=== PATIENT | female | born 1975 ===

== ENCOUNTER 2017-01-17 23:08 | Observation (INO) ==
[2017-01-17] MEDS ORDERED: cefOXitin 1,000 MG in SODIUM CHLORIDE 0.9% 100 ML IV STA (23:43)
--- NOTE | 2017-01-17 23:47 | Emergency Department Note ---
Arrival - Arrival Chief Complaint: Post Surgical Stated Complaint: open hernia repair wound ED Nursing Triage Note: Patient to ED via EMS [facility] after rolling out of her bunkbed at the snf center, resulting in her wound from a hernia repair 1 month ago to open. open area is approx 2 cm and bleeding is controlled. Patient does not remember date or surgery or whom performed surgery. Patient is currently incarcerated for possession of narcotics. Mode of Arrival: Stretcher Limitations: No Limitations Source: Patient Time Seen by Provider: 01/17/17 23:42 - History of Present Illness HPI Narrative: This 41-year-old inmate presents on transfer from [facility] after falling out of her bunk in the snf center at [place]. In the fall she hit her surgical scar from a recent ventral hernia repair with subsequent dehiscence. The patient was sent here for further evaluation and treatment given on her CT she did have a pelvic wall hematoma as well as questionable bowel or bladder fistula based on gas patterns. Currently the patient is resting comfortably in bed without any major complaints with stable vital signs. Onset (ago): hour(s) (Patient presents 4 hours after onset of symptoms) Date of Last Menstrual Period: 1 week ago Allergies/Adverse Reactions: Allergies Allergy/AdvReac Type Severity Reaction Status Date / Time ibuprofen [From Motrin] Allergy HIVES Verified 01/17/17 23:17 Home Medications: Home Medications Medication Instructions Recorded Confirmed Type Pantoprazole Tab [Protonix Tab] 20 mg PO DAILY #30 tablet 01/19/16 Rx traMADol TAB [Ultram] 50 mg PO Q6H #16 tablet 01/19/16 Rx Review of System - Review of System 12 point system: reviewed and no additional remarkable complaints except as stated - Review of System Constitutional: Present: as per HPI Gastrointestinal: Present: as per HPI Medical,Surgical,& Family Hx - Medical History Cardio: No history of: Hypertension Endocrine: No history of: Diabetes Mellitus (IDDM), Diabetes Mellitus (NIDDM) Gastrointestinal: History of: GI Problems (herina ) Musculoskeletal: History of: Back/Neck Problems (back arthritis according to patient ) - Surgical History Abdominal Surgeries: Surgical HX of: Hernia Repair - Social History Smoking Status: Never smoker Frequency of Alcohol Use: None Type of Drug Use: None Exam Physical Examination: GENERAL: Well developed, well nourished [place] female in no acute distress. HEENT: Normocephalic. No trauma. Moist mucous membranes. EOMI. PERRLA. ENT NML NECK: Supple. No adenopathy. CARDIAC: Regular. No murmurs. Heart rate 81 CHEST: Clear to auscultation. No respiratory distress. O2 sat 90 ABDOMEN: Soft. Tender around the area of dehiscence of approximately 4 cm with no active bleeding. Hypoactive bowel sounds. EXTREMITIES: No trauma. Normal ROM. No pedal edema. SKIN: No diaphoresis. No rash. Dehiscence as above NEURO: Alert. Neuro intact no focal deficits. Vital Signs: Vital Signs Temperature 97.9 F 01/17/17 23:08 Pulse Rate 81 01/17/17 23:08 Respiratory Rate 18 01/17/17 23:08 Blood Pressure 121/82 01/17/17 23:08 O2 Sat by Pulse Oximetry 99 01/17/17 23:08 Course - Reevaluation(s) Reevaluation #1: Advised patient of need for hospitalization - Consultations Consultation #1: Discussed with Dr. Carr who deferred to Dr. Laura MALDONADO as this is his patient. Consultation #2: Discussed with Dr. Sanchez who advised cystogram prior to admission. Results - Labs CBC & BMP: 01/17/17 00:08 01/17/17 00:08 Labs: Lab per Maulik: White blood cell count 3900, hematocrit 32.8, creatinine 0.6, BUN 16, sodium 144, potassium 3.7, amylase 61, lipase 159 Follow-up labs here revealed a hematocrit of 29 with amylase and lipase unchanged. - Diagnostic Findings Procedure: CT Abdomen and Pelvis: image reviewed by me, report reviewed by me ( Per Maulik: Ventral pelvic wall subcutaneous gas and strandy subcutaneous density suggesting a mild hemorrhage as well as possibly subcutaneous gas suspicious for laceration and cellulitis. Gas within the urinary bladder noted suspicious for bowel or vagina to bladder fistula), X-ray: image reviewed by me , report reviewed by me (Preliminary cystogram appears negative) Disposition Clinical Impression: Wound dehiscence Case discussed with: patient Disposition: Still a Patient Condition: Guarded Time of Disposition: 01:34
[2017-01-18 00:47] LABS: Basophils % 0.2 % (0.0-0.8); Eosinophils % 0.5 % (0.00-10.9); Hematocrit 29.6 VOL% (35.7-47.0); Hemoglobin 10.1 GM/DL (12.0-16.0); Immature Granulocytes % 0.3 %; Immature Granulocytes Absolute 0.02 #; Lymphocytes % 33.6 % (21.3-54.2); Mean Corpuscular HGB Conc 34.1 GM/DL (32-36); Mean Corpuscular Hemoglobin 30 PG (27-34); Mean Corpuscular Volume 88.1 FL (87-102); Mean Platelet Volume 9.7 FL (9.6-12.0); Monocytes # 0.4 10*3/uL (0.11-0.8); Neutrophils # 3.5 10*3/uL (1.4-7.4); Neutrophils % 58.4 % (38.7-73.9); Platelet Count 230 T/CUMM (130-400); Red Blood Count 3.36 MC/CUMM (3.8-5.5); Red Cell Distribution Width 13.4 % (9.3-17.3)
[2017-01-18] MEDS ORDERED: SODIUM CHLORIDE 0.9% 1,000 ML IV STA (00:47)
[2017-01-18 01:01] LABS: Calcium 8.2 MG/DL (8.5-10.1); Potassium 3.4 MMOL/L (3.5-5.1)
[2017-01-18 01:04] LABS: Lactic Acid 0.8 MMOL/L (0.4-2.0)
--- NOTE | 2017-01-18 01:26 | General Surg History&Physical ---
Assessment and Plan - Time spent with patient Time spent with patient: Greater than 30 minutes (1) Fall Status: Acute Assessment and plan: She may have a trauma to her previous surgical site with partial dehiscence or this could be postoperative change. Using sterile technique we reclosed the abdominal wound with local anesthesia and skin clips. We will obtain a cystogram. When the Anne catheter was placed she had clear yellow urine. We will observe and get serial hematocrits. Current Visit: Yes History of Present Illness Chief complaint: Fall from bunk bed History of present illness: Ms. Macias is a 41 year old female Who is in the custodial facility at [facility] when she fell off of the top bunk. She had pain in her abdomen and drainage from her recent hernia repair site. The lower midline scar that she had before it partially opened up. She states that she had hernia repair with mesh done by me about a month ago at the surgery center. I do not have records of this. It seems like it was longer ago than a month. She had a CT scan read by virtual radiology there that showed some air in the bladder and that she had not had a catheterization. She has had some serosanguineous drainage from the lower aspect of her old incision which partially opened up. She has not had diffuse abdominal pain or unstable vital signs. She is not having nausea or vomiting or hematuria. Home Medications Medication Instructions Recorded Confirmed Type Pantoprazole Tab [Protonix Tab] 20 mg PO DAILY #30 tablet 01/19/16 Rx traMADol TAB [Ultram] 50 mg PO Q6H #16 tablet 01/19/16 Rx Allergies Allergy/AdvReac Type Severity Reaction Status Date / Time ibuprofen [From Motrin] Allergy HIVES Verified 01/17/17 23:17 Medical,Surgical,& Family Hx - Medical History Cardio: No history of: Hypertension Endocrine: No history of: Diabetes Mellitus (IDDM), Diabetes Mellitus (NIDDM) Gastrointestinal: History of: GI Problems (herina ) Musculoskeletal: History of: Back/Neck Problems (back arthritis according to patient ) - Surgical History Abdominal Surgeries: Surgical HX of: Hernia Repair - Social History Smoking Status: Never smoker Frequency of Alcohol Use: None Type of Drug Use: None Exam - Constitutional Vitals: Period Temp Pulse Resp BP Sys/Landers Pulse Ox Last 24 Hr 97.9 F-97.9 F 81-81 18-18 121-121/82-82 99 General appearance: no acute distress - Head Head exam: Present: normocephalic - Eye Eye exam: Present: EOMI. Absent: scleral icterus - ENT Mouth exam: Present: normal voice - Neck Neck exam: Present: trachea midline - Respiratory Respiratory exam: Present: clear to auscultation bilaterally. Absent: accessory muscle use - Cardiovascular Cardiovascular exam: Present: RRR - GI/Abdominal GI/Abdominal exam: Present: soft, other (The old scar in her lower midline at the lower aspect is opened 1.5 cm without exposed intra-abdominal contents or mesh. There is some exposed subcutaneous tissue). Absent: distended, guarding , tenderness, rebound - Extremities Exam Extremities exam: Absent: edema - Neurological Exam Neurological exam: Present: alert, oriented X3. Absent: motor sensory deficit Speech: Present: normal - Skin Skin exam: Present: normal color - Constitutional Constitutional: Absent: chills, fever(s) - Cardiovascular Cardiovascular: Absent: chest pain at rest, chest pain with activity, dyspnea, dyspnea on exertion - Respiratory Respiratory: Absent: dyspnea, hemoptysis, dyspnea on exertion - Gastrointestinal Gastrointestinal: Present: abdominal pain. Absent: hematemesis, hematochezia, nausea, vomiting - Genitourinary Genitourinary: Absent: hematuria - Musculoskeletal Musculoskeletal: Absent: back pain - Neurological Neurological: Absent: focal weakness, syncope - Endocrine Endocrine: Absent: polyuria Hematologic/Lymphatic: Absent: easy bleeding, easy bruising Results - Labs CBC & BMP: 01/17/17 00:08 01/17/17 00:08 Lab Results: I have reviewed the past 24 hour labs - Diagnostic Findings Procedure: CT Abdomen and Pelvis: report reviewed by me
[2017-01-18] MEDS ORDERED: ONDANSETRON 4 MG/2 ML VIAL IV PRN (01:29)
[2017-01-18] MEDS ORDERED: ACETAMINOPHEN 325 MG TABLET PO PRN (01:29)
[2017-01-18] MEDS: DEXTROSE 5% NACL 0.45% 1,000 ML IV SCH ×3 (04:49→18:36)
[2017-01-18] MEDS: VANCOMYCIN INJ 1,000 MG in SODIUM CHLORIDE 0.9% 250 ML IV SCH ×2 (04:51→18:35)
[2017-01-18] MEDS: MORPHINE 2 MG/1 ML SYRINGE IV PRN ×2 (06:07→22:33)
--- NOTE | 2017-01-18 06:43 | Fluoroscopy Report ---
Cystogram. Indication: Pain after surgery. 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 Previous hernia repair. There is a preliminary report from [facility]. 9 images were obtained. This study was performed under the direction of the primary service, in the emergency room, without fluoroscopy. A digester operator helper radiograph demonstrates mild gaseous distention of bowel. Surgical skin smith are seen over the lower abdomen, and there are splenic granulomas present. 500 cc of Cysto-Conray was injected into the bladder via a Anne catheter. The bladder contour is normal. No fistula formation is seen. No vesicoureteral reflux was identified. Impression: No abnormality of the urinary bladder is seen. PROCEDURE INTERPRETED AT [facility] DEPARTMENT OF RADIOLOGY Final Report Signed by: Dr. Danica Zafar
[2017-01-18 06:49] LABS: Basophils % 0.2 % (0.0-0.8); Eosinophils % 0.7 % (0.00-10.9); Hematocrit 28.4 VOL% (35.7-47.0); Hemoglobin 9.8 GM/DL (12.0-16.0); Immature Granulocytes % 0.2 %; Immature Granulocytes Absolute 0.01 #; Lymphocytes # 1.6 10*3/uL (1.4-4.0); Lymphocytes % 27.3 % (21.3-54.2); Mean Corpuscular HGB Conc 34.5 GM/DL (32-36); Mean Corpuscular Hemoglobin 30 PG (27-34); Mean Corpuscular Volume 88.2 FL (87-102); Mean Platelet Volume 10.2 FL (9.6-12.0); Monocytes # 0.3 10*3/uL (0.11-0.8); Monocytes % 5.8 % (1.7-12.7); Neutrophils # 3.9 10*3/uL (1.4-7.4); Neutrophils % 65.8 % (38.7-73.9); Platelet Count 208 T/CUMM (130-400); Red Blood Count 3.22 MC/CUMM (3.8-5.5); Red Cell Distribution Width 13.5 % (9.3-17.3); White Blood Count 5.9 T/CUMM (4-12)
[2017-01-18 07:16] LABS: Calcium 7.9 MG/DL (8.5-10.1); Osmolality,Calculated 280.3 MOS/KG (273-304); Potassium 3.2 MMOL/L (3.5-5.1)
[2017-01-18] MEDS: PANTOPRAZOLE 40 MG TABLET PO SCH (09:30)
--- NOTE | 2017-01-18 14:53 | Event Note ---
As best I can tell I have never operated on this patient. I have looked through the hospital records and the records in my office. Apparently my father treated a episode where she had opened up the lower aspect of her wound several years ago as an outpatient. The nurses report that she frequently would open her wound back up.
[2017-01-19] MEDS: DEXTROSE 5% NACL 0.45% 1,000 ML IV SCH ×2 (04:48→11:24)
[2017-01-19] MEDS: VANCOMYCIN INJ 1,000 MG in SODIUM CHLORIDE 0.9% 250 ML IV SCH (04:48)
--- NOTE | 2017-01-19 08:36 | General Surgery Progress Note ---
Assessment and Plan (1) Fall Status: Acute Assessment and plan: She may have a trauma to her previous surgical site with partial dehiscence or this could be postoperative change. Using sterile technique we reclosed the abdominal wound with local anesthesia and skin clips. We will obtain a cystogram. When the Anne catheter was placed she had clear yellow urine. We will observe and get serial hematocrits. 01/19: She has no complaints this morning. She has been tolerating a diet and feels well without abdominal pain. She has stable vital signs. I discussed the incident resulting in her abdominal wound opening. She claims that she hit her abdomen on the corner of the bunk bed she slipped and fell from the top bunk. She is claims that she slipped on a piece of paper. This appears similar to an incident that occurred in 2013. I went back through the hospital records and the records of my office and cannot see where I did any recent surgery on this patient and does not recall any recent surgery. The patient now thinks that maybe it was in 2013 when she had surgery. I feel that she is doing well and see no signs of infection or intra-abdominal trauma or internal injury. She is symptom-free at this point and I feel that she can be discharged home with plans to follow-up in my office in the next 1-2 weeks. Current Visit: Yes Subjective Patient reports: Present: feels better, tolerating a regular diet. Absent: still having pain, nausea, vomiting, shortness of breath, fever Exam - Constitutional Vitals: Period Temp Pulse Resp BP Sys/Landers Pulse Ox Last 24 Hr 96.4 F-98.3 F 67-89 18-20 104-133/61-75 97-99 General appearance: no acute distress - Head Head exam: Present: normocephalic - Eye Eye exam: Absent: scleral icterus - Respiratory Respiratory exam: Absent: accessory muscle use - GI/Abdominal GI/Abdominal exam: Present: soft. Absent: distended, tenderness, rebound Results - Labs CBC & BMP: 01/18/17 06:31 01/18/17 06:31 Lab Results: I have reviewed the past 24 hour labs Quality Measures - VTE Contraindication to Pharmacological VTE Prophylaxis: High Risk of Bleeding
[2017-01-19] MEDS: PANTOPRAZOLE 40 MG TABLET PO SCH (09:38)
--- NOTE | 2017-01-19 10:38 | Discharge Summary ---
Hospital Course - Hospital Course Hospital Course: Patient is a 41-year-old female who was transferred to this facility from [facility] with presumed complication of surgery performed here. She had wound dehiscence of a midline lower abdominal wound incision. The patient claims that she had a an emergency hernia procedure performed approximately 1 month ago which she thought took place at [facility]. Patient records here, this is inaccurate. The patient states she did not have follow-up scheduled. Upon further questioning, the patient denies any attempts or thoughts of self-mutilation or suicide. She denies any history of depression or anxiety stating she has a supportive, very nice family. Patient was stable upon observation of the dehisced abdominal wound. There were no further evidence of complication. She was tolerating oral intake , voiding, and passing flatus without difficulty. She was ambulating without difficulty. She was discharged home in good condition with follow-up with Dr. Sanchez in 1-2 weeks. Wound care instructions were provided to the patient as well as supplies. - Time spent with patient Time with patient DS: Less than 30 minutes Diagnosis - Discharge Diagnosis (1) Wound dehiscence Status: Acute Discharge Plan - Discharge Data Disposition: Disch To Home/Self Care Condition at Discharge: Stable Discharge Diet: advance to your usual diet Activity: no lifting (> 10 lb) Hygiene: may shower (Do not soak or submerge wound. Clean with Betadine provided after shower and apply clean, dry dressing. ) Driving: not until seen by doctor Contact your physician if you experience:: fever over 101, Redness or swelling ( Wound drainage for further opening.), Bleeding Wound / Dressing Care Instructions: Keep wound clean, dry and covered. Avoid excessive perspiration. - Discharge Medications No Action No Known Home Medications [No Known Home Medications] - Follow Up or Referral Follow Up: Dre Sanchez III., MD [Physician] - (1 week wound check) - Forms/Instructions Instructions: Suture Care (DC) Exam - Constitutional Vitals: Period Temp Pulse Resp BP Sys/Landers Pulse Ox Last 24 Hr 96.4 F-98.3 F 65-89 18-20 104-133/61-79 97-99 General appearance: no acute distress - Head Head exam: Present: normocephalic - Respiratory Respiratory exam: Present: clear to auscultation bilaterally - Cardiovascular Cardiovascular exam: Present: regular rate and rhythm - GI/Abdominal GI/Abdominal exam: Present: normal bowel sounds, soft, other (Lower abdominal midline surgical in decision is clean and dry with proximal dehiscence approximately 2 cm in length. The smith are present without evidence of erythema. There is no active drainage. It appears the wound was poorly approximated on the proximal end of that may be the cause of some of these issues.). Absent: distended, tenderness - Extremities Exam Extremities exam: Absent: calf tenderness, edema - Psychiatric Psychiatric exam: Present: normal affect, normal mood. Absent: depressed, homicidal ideation, manic, suicidal ideation - Skin Skin exam: Present: normal color Discharge Results Procedures and tests throughout hospitalization: Pending Orders 01/17/17 00:30 Blood Culture Stat 01/19/17 15:30 Vancomycin,Trough Timed Labs on day of discharge: Preliminary micro results at discharge 01/17/17 00:30 Blood Culture - Preliminary Blood No growth at 1 day 01/17/17 00:15 Blood Culture - Preliminary Blood No growth at 1 day - Additional Comments Transfer chart reviewed in its entirety DS: Provider Date of admission: 01/18/17 01:29 Primary care physician: Susana Oneil MD Attending physician on admission: Dre Sanchez III., Consults: 01/18/17 03:19 Consult to Pharmacy [CONS] Routine Reason for Pharmacy Consult: Dose/Manage Vancomycin Discharging clinician: Emy Luong PA-C
[2017-01-19 14:09] VITALS: BP 121/63
== END 2017-01-19 13:45 | disposition home or self-care (01) ==
LOC: EDUNIT# → N.ED 23:08 → N.EDINP 23:08 → N.3W 01-18 03:11 → N.4E 01-18 04:09
PROVIDERS: ADMIT Surgery; ATTEND Surgery